=== PATIENT | female | born 2000 | race African-American/Black ===

== ENCOUNTER → 2021-10-16 13:05 | Outpatient (CLI) | payer OTHER, BC, SELFPAY ==
--- NOTE | ~2021-10-16 | XR_ITS ---
EXAMINATION: XR thoracic spine 2V DATE: 10/16/2021 13:34 INDICATION: Thoracic back pain TECHNIQUE: AP, lateral and lateral swimmer's views of the thoracic spine were obtained. COMPARISON: 10/13/2018 FINDINGS: There is no fracture, dislocation, or subluxation. The vertebral body heights, alignment, a nd intervertebral disc spaces are normal. The paravertebral soft tissues are unremarkable. IMPRESSION: 1. Unremarkable thoracic spine. Reviewed, dictated and finalized at location A.
--- NOTE | ~2021-10-16 | XR_ITS ---
EXAMINATION:XR cervical spine 4-5V DATE: 10/16/2021 13:34 INDICATION: Neck pain TECHNIQUE: AP, lateral in neutral, flexion, extension, and odontoid views of the cervical spine are p rovided. COMPARISON: None FINDINGS: Alignment is normal. There is 1 mm of retrolisthesis of C4 on C5 with extension. The odonto id is intact. No fracture is identified. Vertebral body heights and disk spaces are normal. Preverteb ral soft tissues are normal. IMPRESSION: 1. No acute osseous abnormality. 1 mm of retrolisthesis of C4 on C5 with extension. Reviewed, dictated and finalized at location A. IMPRESSION: 1. No acute osseous abnormality. 1 mm of retrolisthesis of C4 on C5 with extens ion.
--- NOTE | ~2021-10-16 | XR_ITS ---
EXAMINATION: XR lumbar spine 2-3V DATE: 10/16/2021 13:34 INDICATION: Low back pain TECHNIQUE: Anteroposterior and lateral views of the lumbar spine, and cone-down lateral view of the l umbosacral junction were obtained. COMPARISON: None. FINDINGS: There is no fracture, dislocation, or subluxation. The vertebral body heights, alignment, a nd intervertebral disc spaces are normal. The paravertebral soft tissues are unremarkable. IMPRESSION: 1. Unremarkable lumbar spine radiographs Reviewed, dictated and finalized at location A.
== END ==
PROVIDERS: PCP Chiropractor; Visit Provider Chiropractor
DX: M54.2 Cervicalgia (principal); M54.6 Pain in thoracic spine; M54.50 Low back pain, unspecified
CPT/HCPCS: 72050; 72070; 72100

== ENCOUNTER 2021-12-21 19:24 | Emergency (ER) | payer BC, SELFPAY ==
--- NOTE | 2021-12-21 19:25 | ED.UPPEXIN ---
HPI - Extremity Injury (Upper) General Chief Complaint: Upper Respiratory Infection Stated Complaint: Headache,Body Aches Time Seen by Provider: 12/21/21 19:24 Source: patient Mode of arrival: ambulatory Limitations: no limitations History of Present Illness HPI narrative: Ms. Alvarez is a 21-year-old female patient presenting to the clinic today with complaints of headache, sore throat, anterior neck pain, fever, nausea, postnasal drip, and body aches 3 days. She reports she just finished up a prescription for Bactrim for a pilonidal cyst. Her temperature is 39.2 ?C in the clinic today. Has taken COVID test prior to arrival to negative. Related Data Home Medications Medication Instructions Recorded Confirmed drospirenone 3 mg-ethinyl 1 tablet PO DAILY 12/21/21 12/21/21 estradiol 0.02 mg tablet Allergies Allergy/AdvReac Type Severity Reaction Status Date / Time No Known Allergies Allergy Verified 12/21/21 19:26 Review of Systems Review of Systems: Pertinent positives per HPI. Patient denies any rash, visual changes, dizziness, shortness of breath, chest pain, palpitations, vomiting, diarrhea, constipation, abdominal pain, or any urinary issues. PMFSH Comments At the time of my signature, I reviewed and agree with the nursing past medical, surgical, social, and family history. There is no relevant family history pertinent to the patient complaint. Exam Narrative: General: Well-developed, overweight, in no apparent distress Head: Normocephalic, atraumatic Eyes: Pupils equally round and reactive to light bilaterally, EOM intact, sclera and conjunctive clear, no discharge, lids normal Ears: TMs intact, dull, mildly red appears viral, ear canals clear, no drainage, grossly hearing normal. Nose: Nares patent, clear nasal discharge, mild inflammation, no sinus tenderness. Mouth: Oropharynx without lesions or masses, good dentition, MMM. Oropharynx red, postnasal drip Neck: Supple, trachea midline, no enlargement of anterior or posterior cervical nodes, no thyroid masses or goiter palpable. Cardio: Regular rate and rhythm, s1 and s2 normal, no murmur appreciated. Resp: Clear to auscultation bilaterally anteriorly and posteriorly, no rhonchi, rales, wheezing or rubs Course Course Emergency Course: Portions of this record may have been created with voice recognition software. Level of Care: Express Care Visit Vital Signs Vital signs: Vital signs reviewed MDM - Extremity Injury (Upper) MDM Narrative Medical decision making narrative: At the time of visit patient is resting comfortably on the exam table. COVID testing was negative at home today. Strep testing was performed and was negative in the clinic. I suspect patient has viral pharyngitis/viral syndrome. Supportive measures were discussed with the patient she voiced understanding of discharge instructions and agrees to the treatment plan. Differential Diagnosis Differential diagnosis: Likely other (Upper respiratory infection, pharyngitis, strep pharyngitis, viral infection, bronchitis, COVID, influenza) Discharge Plan Discharge Clinical Impression: Viral syndrome, Acute pharyngitis, Post-nasal drip Patient Disposition: Home, Self-Care Condition: Stable Instructions: Antibiotic Form, Viral Syndrome (ED), Cold Symptoms (ED), Postnasal Drip (DC) Additional Instructions: COVID testing completed at home and this was negative. Strep screen was completed in the office and was negative. We will send for culture Recommend retesting for COVID tomorrow if you are still having symptoms. Increase fluids and stay well hydrated Tylenol/motrin for pain/fever Flonase and OTC antihistamines as directed Vicks vapor rub to open sinuses Sinus rinses for congestion Cepacol spray, cough drops, throat lozenges, warm tea with honey/lemon, gargle salt water to soothe throat BRAT diet for diarrhea Clear liquids x 24 hours then advance as renee
[2021-12-21 19:33] VITALS: BP 125/73; PULSE 105; RESP 18; TEMP 39.2; O2SAT 100
== END 2021-12-21 19:48 | disposition home or self-care (01) ==
PROVIDERS: Emergency Provider Nurse Practitioner Family
DX: B34.9 Viral infection, unspecified (principal); J02.9 Acute pharyngitis, unspecified; R09.82 Postnasal drip
CPT/HCPCS: 87081; 87880; 99213; G0463

== ENCOUNTER 2021-12-27 01:08 | Emergency (ER) | payer BC, SELFPAY ==
[2021-12-27 01:10] VITALS: BP 122/70; PULSE 71; RESP 16; TEMP 36.1; O2SAT 100
[2021-12-27 01:22] VITALS: RESP 16
--- NOTE | 2021-12-27 01:27 | ED.SKABFB ---
HPI - Skin/Abscess/Foreign Bdy General Chief complaint: Skin/Abscess/Foreign Body Stated complaint: itchy rash Time Seen by Provider: 12/27/21 01:09 History of Present Illness HPI narrative: 21-year-old female presents the emergency room for evaluation of a pruritic rash. Patient states approximately 2 weeks ago she was on Bactrim, completed the course 1 week ago. Developed a rash earlier this morning. Rashes on her arms legs and torso. Has taken Benadryl twice Related Data Home Medications Medication Instructions Recorded Confirmed drospirenone 3 mg-ethinyl 1 tablet PO DAILY 12/21/21 12/21/21 estradiol 0.02 mg tablet Allergies Allergy/AdvReac Type Severity Reaction Status Date / Time No Known Allergies Allergy Verified 12/27/21 01:13 Review of Systems Review of Systems: CONSTITUTIONAL: Denies fever, chills, or sweats. EYES: Denies visual changes, redness, or discharge. ENT: Denies rhinorrhea, congestion, sore throat, or otalgia. CARDIOVASCULAR: Denies chest pain, palpitations, or edema. RESPIRATORY: Denies cough or dyspnea. GASTROINTESTINAL: Denies abdominal pain, nausea, vomiting, or diarrhea. GENITOURINARY: Denies dysuria or hematuria. SKIN: Reports rash MUSCULOSKELETAL: Denies back pain, joint pain, or myalgia. NEUROLOGIC: Denies headache, numbness, dizziness, or weakness. PSYCHIATRIC: Denies anxiety or depression. Exam Narrative: GENERAL: Well-appearing, well-nourished, no physical limitations, and in no acute distress. HEAD: Normocephalic, atraumatic. EYES: Conjunctivae normal, PERRLA and EOMI. NECK: Supple. No meningeal signs. No adenopathy or masses. No carotid bruits or JVD CHEST: Clear to auscultation. No respiratory distress. No wheezes rales or rhonchi. No tenderness. HEART: Regular rate and rhythm. No murmur heard. Normal peripheral pulses. EXTREMITIES: Normal range of motion. No edema. No clubbing or cyanosis SKIN: Urticaria noted to upper and lower extremities, neck and anterior posterior torso NEURO: No focal deficits. Alert and oriented x3. MAEW. CN's II-XI intact bilaterally, normal gait PSYCH: Cooperative. Normal mood and affect. Course Vital Signs Vital signs: Vital Signs Temperature 36.1 C L 12/27/21 01:10 Pulse Rate 71 12/27/21 01:10 Respiratory Rate 16 12/27/21 01:10 Blood Pressure 122/70 12/27/21 01:10 Pulse Oximetry 100 12/27/21 01:10 Oxygen Delivery Room Air 12/27/21 01:10 Temperature 36.1 C L 12/27/21 01:10 Pulse Rate 71 12/27/21 01:10 Respiratory Rate 16 12/27/21 01:22 Blood Pressure 122/70 12/27/21 01:10 Pulse Oximetry 100 12/27/21 01:10 Oxygen Delivery Room Air 12/27/21 01:10 Discharge Plan Discharge Clinical Impression: Urticaria Patient Disposition: Home, Self-Care Condition: Stable Instructions: Antibiotic Form, Urticaria (ED) Additional Instructions: Continue taking Benadryl at night. Take daily Pepcid. Begin taking the prednisone on Wednesday morning. May take Claritin or Zyrtec during the day for the itch. Prescriptions: New prednisone 20 mg tablet 60 mg PO DAILY 5 Days Qty: 15 0RF No Action drospirenone-ethinyl estradiol 3-0.02 mg tablet 1 tablet PO DAILY Follow-up/Referrals: PHYSICIAN NOT ON STAFF,NONSTAFF [Primary Care Provider] - Time of Disposition:
[2021-12-27] MEDS: FAMOTIDINE 20 MG/2 ML VIAL IV PUSH (01:53)
[2021-12-27] MEDS: diphenhydrAMINE HCl INJ 50 MG/ML VIAL IV PUSH (01:54)
[2021-12-27] MEDS: methylPREDNISolone SOD SUCC 125 MG VIAL IV PUSH (01:56)
[2021-12-27 02:31] VITALS: BP 131/89; PULSE 102; RESP 16; O2SAT 100
== END 2021-12-27 02:32 | disposition home or self-care (01) ==
LOC: ANHED 01:39
PROVIDERS: Emergency Provider Nurse Practitioner Family
DX: L50.9 Urticaria, unspecified (principal)
CPT/HCPCS: 96374; 96375; 99284; J1200; J2930